=== PATIENT | male | born 1955 | race Caucasian/White ===

== ENCOUNTER → 2017-01-29 | Outpatient (CLI) | payer SELFPAY ==
--- NOTE | 2017-01-29 21:42 | CT ---
EXAMINATION TYPE: CT heart w calcium score DATE OF EXAM: 01/29/2017 3:25 PM COMPARISON: NONE HISTORY: Screening for cardiovascular disorder. 213.9 CT DLP: 58.8 mGycm Automated exposure control for dose reduction was used. CT CALCIUM SCORING Coronary calcium is a marker for plaque (fatty deposits) in a blood vessel or atherosclerosis (harden ing of the arteries). The presence and amount of calcium detected in a coronary artery by the CT sca n, indicates the presence and amount of atherosclerotic plaque. These calcium deposits appear years before the development of heart disease symptoms such as chest pain and shortness of breath. A calcium score is computed for each of the coronary arteries based upon the volume and density of th e calcium deposits. This can be referred to as your calcified plaque burden. It does not correspond directly to the percentage of narrowing in the artery but does correlate with the severity of the un derlying coronary atherosclerosis. PROCEDURE TECHNIQUE - Prospective Gating was used. Slice thickness: 3mm. Density threshold (HU): 130, Pixel threshold: 3, Algorithm: discrete. RESULTS Region Calcium Score ([place]) Volume (mm3) Mass (g) LM 0 0 0 RCA 18 21 4.41 LAD 968 743 297.33 CX 191 167 42.94 Total 1177 931 344.68 TOTAL CALCIUM SCORE 1177 OTHER: Some linear scarring or atelectasis in the lingula is present near axial image 17. Additional linear scarring or atelectasis centrally in the left lower lobe is present near diaphragm on axial i mages 28 through 32. There is mild calcified plaque at aortic root and throughout visualized descendi ng thoracic aorta. Left circumflex artery is dominant. Left main is tiny segment near ostium with zuri ck takeoff of LAD and left circumflex arteries. IMPRESSION: Calcium Score: 401 or higher Implication: Extensive atherosclerotic plaque Risk of Coronary Artery Disease: High likelihood of at least one significant coronary narrowing.
== END | disposition home or self-care (01) ==
LOC: RADXRMAIN 14:55
PROVIDERS: ATTEND Radiology Diagnostic Radiology
DX: Z53.9 Procedure and treatment not carried out, unspecified reason (principal)

== ENCOUNTER → 2017-02-26 | Outpatient (CLI) | payer MEDICAID, MEDICARE ==
--- NOTE | 2017-02-27 11:08 | MR ---
EXAMINATION TYPE: MR wrist LT wo con DATE OF EXAM: 02/26/2017 4:46 PM COMPARISON: No radiographs available for comparison purposes. HISTORY: 62-year-old male Lt wrist pain, possible rupture of graft, marker placed on surgery site. TECHNIQUE: Multiplanar, multisequence images of the left wrist were obtained without IV contrast. FINDINGS: There is degenerative signal seen within the TFC with marked thinning of the central articular disc a nd possible small perforation. Moderate effusion within the distal radial ulnar joint. Mild degenerative signal within the dorsal scapholunate ligament which appears grossly intact otherwi se. There is evidence of trapezial excision and STIR tendon interposition arthroplasty at the base of the thumb. However, the first metacarpal basically articulates with the distal pole of the scaphoid and closely contacts/abuts the trapezoid. There is prominent bone marrow edema and adjacent soft tissue e billie involving these subchondral articulating portions of these bones but more extensively throughout the trapezoid. There does appear to be some cartilage loss at the distal scaphoid pole at the scaphoid trapezoid art iculation, coronal T2 FS image 12. Extensive heterogeneity of soft tissues makes it difficult to follow the interposed tendon graft. The STIR extending from the base of the second metacarpal has a redundant and irregular appearance, refe r to coronal T1 image 9 and shows a longitudinal split as it enters the drill hole along the articula r surface of the base of the metacarpal, axial T2 FS image 15. The tunneled tendon resumes normal thickness as does the tendon exiting the dorsal portion of the met acarpal base. The patient's bowel duct tendon mass is dislocated dorsally to be located along the rad ial margin of the flexor tendons Median nerve is minimally thickened with a cross-sectional area of 15.2 sq mm. Mild tenosynovial fluid seen along the first dorsal compartment extensor tendons. No retracted tear o f these tendons though there may be tendinosis of the extensor pollicis brevis at the level of the pr oximal carpal row. There is tendinosis and interstitial tearing within the extensor carpi ulnaris but otherwise normal p ositioning. Mild deep soft tissue swelling especially along the thenar aspect, likely reactive. No erik bone mar row replacement is seen. IMPRESSION: 1. Postsurgical changes of ligament reconstruction and FCR interposition arthroplasty at the base of the thumb. 2. There is erik volar dislocation of the balled up tendon mass causing proximal migration of the fi rst metacarpal and an abnormal articulation with the scaphoid and trapezoid. Prominent reactive bone marrow edema and adjacent soft tissue swelling. 3. This may be secondary to tear of the FCR at its second metacarpal base attachment given heterogene ous, attenuated, and redundant appearance of the tendon here, for example, coronal T1 image 9. 4. Suspect a small perforation of the articular disc of the TFC. 5. 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 6. Mild tenosynovitis of the first dorsal compartment and interstitial tearing of the ECU.
== END | disposition home or self-care (01) ==
LOC: RADMRIMAIN 15:54
PROVIDERS: ATTEND Orthopaedic Surgery Hand Surgery
DX: S66.812A Strain of other specified muscles, fascia and tendons at wrist and hand level, left hand, initial encounter (principal); M65.88 Other synovitis and tenosynovitis, other site; M79.89 Other specified soft tissue disorders; M89.8X8 Other specified disorders of bone, other site; Z98.890 Other specified postprocedural states

== ENCOUNTER → 2017-11-01 | Outpatient (CLI) | payer MEDICAID, MEDICARE ==
--- NOTE | 2017-11-01 14:39 | US ---
EXAMINATION TYPE: US extremity nonvasc complt RT DATE OF EXAM: 11/01/2017 COMPARISON: MRI right knee August 17, 2016 CLINICAL HISTORY: R93.8 abnormal findings on imaging. Abnormal MRI, lymph node within right pop fossa 1.6 x 0.8 x 0.7 cm probable ganglion cyst as seen on MRI lateral right pop fossa/ Unable to visuali ze 7mm lymph node as seen on MRI Tiny cystic lesion probable ganglion cyst redemonstrated lateral aspect. No new suspicious lesions or adenopathy noted on images saved. IMPRESSION: As above
== END | disposition home or self-care (01) ==
LOC: RADUSWWP 12:46
PROVIDERS: ATTEND Family Medicine
DX: M25.861 Other specified joint disorders, right knee (principal)

== ENCOUNTER → 2018-02-07 | Outpatient (CLI) | payer MEDICAID, MEDICARE ==
--- NOTE | 2018-02-08 10:11 | MR ---
EXAMINATION TYPE: MR lumbar spine wo con DATE OF EXAM: 02/07/2018 9:37 PM COMPARISON: NONE HISTORY: Low back pain, Right and Left Upper Buttock Pain x6 Months Multiplanar, MultiSpin echo imaging of the lumbar spine was performed. L1-L2: Normal disc appearance without desiccation. No herniation, protrusion or disc bulging. No ca nal stenosis is present. Foramina are patent bilaterally. L2-L3: Normal disc appearance without desiccation. No herniation, protrusion or disc bulging. No ca nal stenosis is present. Foramina are patent bilaterally. L3-L4: There is mild decreased signal ossified compatible degenerative disc disease. Mild posterior d isc bulge. No evidence for herniation or protrusion. No central stenosis or foraminal encroachment. L4-L5: Moderate disc desiccation noted. Moderate circumferential disc bulge. Hypertrophy of the ligam entum flavum and facet joint arthropathy contribute to [id number] central stenosis. Bilateral f oraminal encroachment noted. L5-S1: Mild decreased signal on. Posterocentral disc bulge without herniation or protrusion. No centr al stenosis or foraminal encroachment. Lumbar segments are intact. No paraspinal masses are identified. Conus medullaris has a normal appe arance. IMPRESSION: 1. Multilevel degenerative disc disease. 2. Central stenosis at L4-5 as discussed.
--- NOTE | 2018-02-08 10:44 | MR ---
EXAMINATION TYPE: MR abdomen wo con DATE OF EXAM: 02/07/2018 COMPARISON: NONE HISTORY: Right Upper Quad pain HX of Gallstones Standard multiplanar, multisequence MRI departmental protocol Multiplanar, multisequence images of the abdomen were acquired. Diffusion weighted imaging was perfor med. FINDINGS: Liver and gallbladder: Not there is a single gallstone noted. No gallbladder wall thickening or mack cholecystic fluid. Intra and extrahepatic biliary tree are of normal caliber. There is mild hepatic s teatosis identified. Within the anterior segment of the right hepatic lobe there is a simple cyst not ed measuring 1 cm. No additional hepatic lesions are present. Pancreas: Pancreatic duct is of normal caliber. No solid pancreatic lesions identified. Several small pancreatic cysts identified estimated at between 8 and 10 in number measuring up to 6 mm in size. No inflammatory process seen. The spleen is of normal size. No adrenal masses are present. The kidneys are free of solid lesion. Simple cyst anterior cortex lower pole right kidney measuring 1 .4 cm. Mild atheromatous change abdominal aorta without aneurysm. These lies bowel loops are of normal caliber. IMPRESSION: 1. Mild hepatic steatosis. 2. Uncomplicated cholelithiasis. 3. Small cystic changes of the pancreas and right kidney.
== END | disposition home or self-care (01) ==
LOC: RADMRIMAIN 20:22
PROVIDERS: ATTEND Family Medicine
DX: M48.061 Spinal stenosis, lumbar region without neurogenic claudication (principal); M51.36 Other intervertebral disc degeneration, lumbar region; K80.20 Calculus of gallbladder without cholecystitis without obstruction; N28.1 Cyst of kidney, acquired; K76.0 Fatty (change of) liver, not elsewhere classified; K86.2 Cyst of pancreas
CPT/HCPCS: 72148; 74181

== ENCOUNTER → 2018-05-15 | Outpatient (CLI) | payer MEDICAID ==
--- NOTE | 2018-05-16 02:24 | MR ---
EXAMINATION TYPE: MR knee LT wo con DATE OF EXAM: 05/15/2018 COMPARISON: None HISTORY: Lt knee pain x 2 weeks after slipping off a ladder, hx partial left knee surgery TECHNIQUE: Multiplanar, multisequence imaging of the left knee is performed without IV contrast. FINDINGS: There is metal artifact from medial compartment prosthesis. Detail in this area is limited. There is extensive abnormal increased signal throughout the anterior horn of the lateral meniscus. The anterio r and posterior menisci are obscured by the prosthesis. There is knee joint effusion. The collateral ligaments are intact. There is some spurring of the medial and lateral femoral and tibial condyles. T he collateral ligaments appear intact. IMPRESSION: Large tear of the anterior horn of the lateral meniscus. No fracture. Knee joint effusion. Hypertroph ic osteoarthritic changes. The cruciate ligaments are not well seen but I see no obvious tear.
== END | disposition home or self-care (01) ==
LOC: RADMRIMAIN 16:20
PROVIDERS: ATTEND Family Medicine
DX: S83.282A Other tear of lateral meniscus, current injury, left knee, initial encounter (principal); M17.12 Unilateral primary osteoarthritis, left knee; Z98.890 Other specified postprocedural states